=== PATIENT | male | born 1950 | race Caucasian/White ===

== ENCOUNTER → 2022-06-18 15:04 | Outpatient (CLI) | payer MEDICARE, BC, SELFPAY ==
--- NOTE | 2022-06-18 19:26 | DI.NM.S_ITS ---
DATE OF SERVICE: 06/18/2022 PROCEDURE: Exercise treadmill stress test without imaging. ORDERING PROVIDER: Dr. Maksim Montero. INDICATIONS: The patient is a 71-year-old male with atypical chest discomfort. FINDINGS: 1. The patient was able to exercise for 10 minutes, 20 seconds on a standard Jorge Luis protocol, suggesting excellent exercise capacity with an DOMINGA of -43%, achieving 11 METs. 2. He had a normal heart rate and blood pressure response to exercise, achieving a maximum heart rate of 136 BPM (91% of his predicted maximum). 3. He had no chest discomfort or anginal symptoms. 4. His resting ECG shows sinus rhythm at 65 BPM with occasional isolated PVCs and normal ST segments. There are no significant ST-segment shifts or arrhythmias with stress. IMPRESSION: 1. Normal exercise treadmill study for ischemia. 2. Excellent exercise capacity without angina and only rare, isolated PVCs at rest. Luis AntonioDelta - CECY/bassem/sukumar doc#: [id number]/job#: [id number] dd: 06/18/2022 17:39:00 dt: 06/18/2022 19:19:00 DICTATING /COPIES TO: Gallo Ochoa MD COPIES MNE: AIME;
== END ==
PROVIDERS: PCP Family Medicine; Referring Provider Family Medicine; Visit Provider Family Medicine
DX: R07.89 Other chest pain (principal)
CPT/HCPCS: 93017